=== PATIENT | female | born 1970 ===

== ENCOUNTER 2021-11-27 02:20 | Emergency (ER) | payer SELFPAY ==
[~2021-11-27] VITALS: Ht 160 cm; Wt 68.2 kg
[2021-11-27 02:39] VITALS: BP 120/58
== END 2021-11-27 04:24 ==
LOC: EMS 02:20
DX: V43.52XA Car driver injured in collision with other type car in traffic accident, initial encounter; Y93.89 Activity, other specified; Y92.89 Other specified places as the place of occurrence of the external cause; Y99.8 Other external cause status
CPT/HCPCS: 70450; 71045; 72125; 99284